=== PATIENT | male | born 1980 | race Caucasian/White ===

== ENCOUNTER 2020-12-14 14:38 | Outpatient (CLI) | payer BC | END 2020-12-14 14:39 | disposition home or self-care (01) | LOC: DTY/OP 14:38 | PROVIDERS: ATTEND Specialist | DX: Z01.818 Encounter for other preprocedural examination (principal); E66.01 Morbid (severe) obesity due to excess calories | CPT/HCPCS: 97802 ==

== ENCOUNTER 2021-08-29 16:06 | Outpatient (CLI) | payer BC ==
[2021-08-29 16:59] LABS: #Eosinphils 0.1 10x3/uL (0.0-0.5); #Monocytes 0.6 10x3/uL (0.0-1.1); #Neutrophils 3.2 10x3/uL (1.5-8.4); %Basophils 0.5 % (0.0-2.0); %Eosinophils 1.6 % (0.0-6.0); %Lymphocytes 29.2 % (18.0-47.0); %Monocytes 11.2 % (0.0-10.0); %Neutrophils 57.1 % (40.0-75.0); Hemoglobin 16.1 g/dL (13.5-17.5); Mean Corpuscular HGB CONC 35.2 g/dL (32.0-36.0); Mean Corpuscular Hemoglobin 32.1 pg (27.0-33.0); Mean Corpuscular Volume 91.2 fl (81.2-95.1); Mean Platelet Volume 9.6 fl (7.4-10.4); Platelet Count 231 10x3/uL (150-450); RBC Distribution Width 12.3 % (11.5-14.5); Red Blood Cell (RBC) Count 5.02 10x6/uL (4.32-5.72); White Blood Cell (WBC) Count 5.6 10x3/uL (3.5-10.5)
[2021-08-29 17:16] LABS: ALT (SGPT) 57 U/L (8-55); AST (SGOT) 45 U/L (5-34); Albumin 4.3 g/dL (3.5-5.0); Alkaline Phosphatase 86 U/L (40-110); Anion Gap 13 mmol/L (10-20); BUN (Urea Nitrogen) 27 mg/dL (8.9-20.6); Bilirubin, Total 0.8 mg/dL (0.2-1.2); Calc. Creatinine Clearance 0 mL/min (70-130); Calcium 9.3 mg/dL (7.8-10.44); Carbon Dioxide 21 mmol/L (22-29); Chloride 108 mmol/L (98-107); Globulin 1.9 g/dL (2.4-3.5); Glucose 82 mg/dL (70-105); Protein, Total 6.2 g/dL (6.0-8.3); Sodium 138 mmol/L (136-145)
[2021-08-29 20:18] LABS: Hemoglobin A1c 5.2 % (4.0-6.0)
[2021-08-30 00:18] LABS: SARS-CoV-2 PCR by NAA Not Detected (NotDetected)
== END 2021-08-29 16:07 | disposition home or self-care (01) ==
LOC: LABBT 16:06
PROVIDERS: ATTEND Surgery
DX: Z01.818 Encounter for other preprocedural examination (principal); E66.01 Morbid (severe) obesity due to excess calories; Z20.822 Contact with and (suspected) exposure to COVID-19
CPT/HCPCS: 71046; 80053; 83036; 85025; 93005; 93010; U0003; U0005

== ENCOUNTER 2021-08-29 16:15 | Inpatient (IN) | payer BC ==
[2021-09-03] MEDS ORDERED: Midazolam HCl 2 mg/2 ml Vial ONE (06:46)
[2021-09-03] MEDS ORDERED: fentaNYL Citrate/PF 100 MCG/2 ML SYRINGE ONE (06:47)
[2021-09-03] MEDS ORDERED: Bupivacaine PF 0.5% 30 ML VIAL ONE (07:19)
[2021-09-03] MEDS ORDERED: Lidocaine 1% w/Epinephrine 1:100K 20 ML VIAL ONE (07:19)
[2021-09-03] MEDS ORDERED: Levofloxacin 500 mg/D5W 100 ml Premix Bag ONE (07:29)
[2021-09-03] MEDS ORDERED: Metoclopramide HCl 10 MG/2 ML VIAL ONE (07:59)
[2021-09-03] MEDS ORDERED: Glycopyrrolate 0.2 MG/ML 5 ML SYRINGE ONE (07:59)
[2021-09-03] MEDS ORDERED: Rocuronium Bromide 10 MG/ML (10ML VIAL) ONE (07:59)
[2021-09-03] MEDS ORDERED: PROPOFOL 200 MG/20 ML VIAL ONE (07:59)
[2021-09-03] MEDS ORDERED: Ondansetron PF 4 MG/2 ML Vial ONE ×2 (07:59→10:00)
[2021-09-03] MEDS ORDERED: diphenhydrAMINE 50 MG/ML VIAL IVP PRN (08:53)
[2021-09-03] MEDS ORDERED: Morphine 2 MG/ML VIAL SLOW IVP PRN (08:53)
[2021-09-03] MEDS ORDERED: hydrALAZINE 20 MG/ML VIAL SLOW IVP PRN (08:53)
[2021-09-03] MEDS ORDERED: Promethazine HCl 25 MG/ML VIAL IM PRN (08:53)
[2021-09-03] MEDS ORDERED: Dextrose 5% in Water 1,000 ML IV PRN (08:53)
[2021-09-03] MEDS ORDERED: Dextrose 50% Abboject 50 ML SYRINGE SLOW IVP PRN (08:53)
[2021-09-03] MEDS ORDERED: Morphine 4 MG/ML VIAL SLOW IVP PRN (08:53)
[2021-09-03] MEDS ORDERED: Racepinephrine 2.25% 0.5 ML NEB ONE (09:06)
[2021-09-03] MEDS ORDERED: Sodium Chloride For Inhalation 0.9% 3 ML NEB ONE (09:06)
[2021-09-03] MEDS ORDERED: hydrALAZINE 20 MG/ML VIAL ONE (09:39)
[2021-09-03 11:27] VITALS: BMI 38.9
[2021-09-03] MEDS: D5 1/2 NS w/20 mEq KCL 1,000 ML IV SCH ×2 (11:50→17:18)
[2021-09-03] MEDS: Ketorolac Tromethamine 30 MG/ML VIAL IVP SCH ×2 (11:50→17:12)
[2021-09-03] MEDS: Pantoprazole 40 MG VIAL IVP SCH (11:51)
[2021-09-03] MEDS: Hydrocodone-Acetamin 15 ML UDCUP PO PRN ×2 (17:12→22:29)
[2021-09-03] MEDS: Ondansetron PF 4 MG/2 ML Vial IVP PRN (17:12)
[2021-09-04] MEDS: Ketorolac Tromethamine 30 MG/ML VIAL IVP SCH ×3 (06:34→17:51)
[2021-09-04 06:57] LABS: #Basophils 0.1 thou/uL (0.0-0.2); #Lymphocytes 0.9 thou/uL (1.20-3.40); #Neutrophils 8.2 thou/uL (1.40-6.50); %Basophils 0.8 % (0.0-1.0); %Eosinophils 0.2 % (0.0-10.0); %Lymphocytes 8.4 % (21.0-51.0); %Monocytes 9.9 % (0.0-10.0); %Neutrophils 80.8 % (42.0-75.0); Hemoglobin 17.1 g/dL (14.0-18.0); Mean Corpuscular HGB CONC 33.7 g/dL (32.0-36.0); Mean Corpuscular Hemoglobin 32.2 pg (27.0-31.0); Mean Corpuscular Volume 95.7 fL (78.0-98.0); Mean Platelet Volume 7.4 fL (7.4-10.4); Platelet Count 214 thou/uL (130-400); RBC Distribution Width 11.8 % (11.5-14.5); Red Blood Cell (RBC) Count 5.31 mill/uL (4.70-6.10); White Blood Cell (WBC) Count 10.2 thou/uL (4.8-10.8)
[2021-09-04 07:27] LABS: Anion Gap 13 mmol/L (10-20); BUN (Urea Nitrogen) 7 mg/dL (8.9-20.6); Calc. Creatinine Clearance 151 mL/min (70-130); Calcium 8.9 mg/dL (7.8-10.44); Carbon Dioxide 22 mmol/L (22-29); Chloride 104 mmol/L (98-107); Glucose 117 mg/dL (70-105); Potassium 4.3 mmol/L (3.5-5.1); Sodium 135 mmol/L (136-145)
[2021-09-04] MEDS: Pantoprazole 40 MG VIAL IVP SCH (08:56)
[2021-09-04] MEDS: Enoxaparin Sodium 40 MG/0.4 ML SYRINGE SC SCH (08:56)
[2021-09-04] MEDS: Ondansetron PF 4 MG/2 ML Vial IVP PRN (08:56)
[2021-09-04] MEDS: Hydrocodone-Acetamin 15 ML UDCUP PO PRN ×2 (08:56→22:52)
[2021-09-04] MEDS: D5 1/2 NS w/20 mEq KCL 1,000 ML IV SCH ×3 (09:00→11:16)
[2021-09-05] MEDS: Ketorolac Tromethamine 30 MG/ML VIAL IVP SCH ×3 (06:21→12:28)
[2021-09-05] MEDS: D5 1/2 NS w/20 mEq KCL 1,000 ML IV SCH ×2 (06:22→09:03)
[2021-09-05] MEDS: Enoxaparin Sodium 40 MG/0.4 ML SYRINGE SC SCH (09:37)
[2021-09-05] MEDS: Pantoprazole 40 MG VIAL IVP SCH (09:38)
[2021-09-05 16:09] VITALS: BP 113/74; TEMP 98.5
== END 2021-09-05 17:54 | disposition home or self-care (01) | DRG 621 ==
LOC: SURG A 09-03 05:29 → SURG B 09-03 10:32
PROVIDERS: ADMIT Surgery; ATTEND Surgery
PROC: 0DB64Z3 Excision of Stomach, Percutaneous Endoscopic Approach, Vertical (ICD-10-PCS; principal; 2021-09-03)
DX: E66.01 Morbid (severe) obesity due to excess calories (principal); Z20.822 Contact with and (suspected) exposure to COVID-19; I10 Essential (primary) hypertension; E78.5 Hyperlipidemia, unspecified; G47.33 Obstructive sleep apnea (adult) (pediatric); J30.2 Other seasonal allergic rhinitis; G40.909 Epilepsy, unspecified, not intractable, without status epilepticus; F41.9 Anxiety disorder, unspecified; E78.00 Pure hypercholesterolemia, unspecified; F32.A Depression, unspecified; E03.9 Hypothyroidism, unspecified; Z88.0 Allergy status to penicillin; Z79.899 Other long term (current) drug therapy; Z68.41 Body mass index [BMI] 40.0-44.9, adult
CPT/HCPCS: 36415; 80048; 85025; 88307; C9113; J0360; J1650; J1885; J1956; J2250; J2405; J2704; J2765; J3480; S0020